=== PATIENT | female | born 1980 | race Caucasian/White ===

== ENCOUNTER 2020-12-31 07:40 | Emergency (ER) | payer MEDICAID ==
[~2020-12-31] VITALS: Ht 165.1 cm; Wt 97.5 kg
[2020-12-31 08:09] VITALS: BP 152/80
--- NOTE | 2020-12-31 08:11 | NUR ---
PT TO WAIT IN LOBBY.
--- NOTE | 2020-12-31 08:41 | NUR ---
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
--- NOTE | 2020-12-31 08:55 | NUR ---
40 Y/O FEMALE C/O LEFT FLANK PAIN 10 X3DAYS. DENIES RX PRIOR TO ARRIVAL. DENIES DYSURIA, STATES +N/-V, DENIES FEVER/CHILLS. ABD IS SOFT, ROUND, NON-TENDER TO PALPATION, BOWEL SOUNDS ACTIVE X4. DENIES PMH NKA
[2020-12-31 08:57] LABS: BASOPHILS # (AUTO) 0.2 K/uL (0.00-0.22); BASOPHILS % (AUTO) 1.9 % (0.0-2.0); EOSINOPHILS % (AUTO) 0.6 % (0.0-4.0); HEMATOCRIT 38.5 % (36-48); HEMOGLOBIN 13.3 g/dL (12.0-16.0); LYMPHOCYTES # (AUTO) 1.5 K/uL (2.5-16.5); LYMPHOCYTES % (AUTO) 19.2 % (20.5-51.1); MEAN CORPUSCULAR HEMOGLOBIN 31 pg (27-31); MEAN CORPUSCULAR HGB CONC 35 g/dL (33-37); MEAN CORPUSCULAR VOLUME 90.1 fL (80-94); MONOCYTES # (AUTO) 0.9 K/uL (0.8-1.0); NEUTROPHILS # (AUTO) 5.3 K/uL (1.8-7.7); NEUTROPHILS % (AUTO) 67.3 % (42.2-75.2); PLATELET COUNT (AUTO) 221 K/uL (140-450); RED BLOOD CELL COUNT(AUTO) 4.28 MIL/uL (4.20-5.40); RED CELL DISTRIBUTION WIDTH 12.4 % (11.6-13.7); WHITE BLOOD COUNT (AUTO) 7.9 K/uL (4.8-10.8)
[2020-12-31] MEDS: KETOROLAC 30 MG/ML VIAL IVP ONE (09:33)
[2020-12-31 10:37] LABS: ANION GAP 17.7 (8-16); CARBON DIOXIDE 24.2 mmol/L (21-32); CREATININE 0.9 mg/dL (0.6-1.3); POTASSIUM 3.9 mmol/L (3.5-5.1)
[2020-12-31 10:56] LABS: ALBUMIN 3.8 g/dL (3.4-5.0); TOTAL BILIRUBIN 0.4 mg/dL (0.0-1.0)
[2020-12-31 11:07] LABS: APPEARANCE,URINE HAZY (CLEAR); BILIRUBIN,URINE NEGATIVE (NEGATIVE); BLOOD, URINE 2+ (NEGATIVE); COLOR,URINE YELLOW (YELLOW); LEUKOCYTE ESTERASE ,URINE 1+ (NEGATIVE); NITRITE, URINE POSITIVE (NEGATIVE); UGLUCOSE NEGATIVE (NEGATIVE)
[2020-12-31 11:25] LABS: RBC,URINE 0-5 /HPF (0-5); WBC,URINE 20-60 /HPF (0-5)
[2020-12-31] MEDS ORDERED: cefTRIAXone 1,000 MG VIAL ONE (11:48)
[2020-12-31] MEDS ORDERED: ACET-8386 PO (12:02)
[2020-12-31] MEDS ORDERED: ONDA-24 SL (12:02)
[2020-12-31] MEDS ORDERED: CEPH-588 PO (12:02)
[2020-12-31 12:32] VITALS: BP 126/70
--- NOTE | 2020-12-31 12:32 | NUR ---
Patient discharged with v/s stable. Written and verbal after care instructions given and explained. Patient alert, oriented and verbalized understanding of instructions. Ambulatory with steady gait. All questions addressed prior to discharge. ID band removed. Patient advised to follow up with PMD. Rx of CEPHALEXIN, ONDANSETRON given. Patient educated on indication of medication including possible reaction and side effects. Opportunity to ask questions provided and answered.
== END 2020-12-31 12:32 | disposition home or self-care (01) ==
LOC: MED 07:40
DX: N12 Tubulo-interstitial nephritis, not specified as acute or chronic (principal); F17.200 Nicotine dependence, unspecified, uncomplicated; Z79.2 Long term (current) use of antibiotics; Z79.899 Other long term (current) drug therapy
CPT/HCPCS: 36415; 74176; 80053; 81001; 81025; 85025; 87086; 96365; 96375; 99284; J0696; J1885

== ENCOUNTER 2023-11-27 14:19 | Emergency (ER) | payer MEDICAID, OTHER ==
[~2023-11-27] VITALS: Ht 162.6 cm; Wt 101.6 kg
[~2023-11-27 14:19] MED LIST: ACET-8905 PO; CEPH-588 PO; ONDA-188 SL
[2023-11-27 14:27] VITALS: BP 143/72; PULSE 71; RESP 18; TEMP 98.4; O2SAT 95
--- NOTE | 2023-11-27 15:42 | NUR ---
ASSUMED PATIENT CARE, NURSING ASSESSMENT COMPLETED.
[2023-11-27] MEDS: PROCHLORPERAZINE 10 MG/2 ML VIAL IM ONE (15:53)
[2023-11-27] MEDS: KETOROLAC 30 MG/ML VIAL IM ONE (15:54)
[2023-11-27] MEDS ORDERED: PROC-87 PO (16:23)
[2023-11-27 16:29] VITALS: BP 143/72; PULSE 71; RESP 18; TEMP 98.4; O2SAT 95
--- NOTE | 2023-11-27 16:29 | NUR ---
Patient discharged with v/s stable. Written and verbal after care instructions given and explained. Patient alert, oriented and verbalized understanding of instructions. Ambulatory with steady gait. All questions addressed prior to discharge. ID band removed. Patient advised to follow up with PMD. Rx of COMPAZINE given. Patient educated on indication of medication including possible reaction and side effects. Opportunity to ask questions provided and answered.
== END 2023-11-27 16:29 | disposition home or self-care (01) ==
LOC: MED 14:19
DX: G43.909 Migraine, unspecified, not intractable, without status migrainosus (principal); Z79.899 Other long term (current) drug therapy
CPT/HCPCS: 81025; 96372; 99284; J0780; J1885